=== PATIENT | male | born 1935 | race Caucasian/White ===

== ENCOUNTER 2023-06-17 12:07 | Outpatient (RCR) | payer MEDICARE, BC, SELFPAY ==
[2023-06-17 12:19] LABS: HCT 39.6 % (40.0-50.0); HGB 13.2 g/dL (13.5-17.5); MCH 31.7 pg (27.0-33.0); MCHC 33.3 % (32.0-36.0); MCV 95 fL (80-95); MPV 10.3 fL (8.0-11.0); Platelet Count 104 10^3/uL (130-400); RBC 4.16 10^6/uL (4.36-5.78); RDW 12.2 % (11.8-14.1); RDW-SD 42.8 fL; WBC 4.88 10^3/uL (4.4-10.8)
[2023-06-17] MEDS: Normal Saline Flush 10 ML SYR IVP (12:21)
[2023-06-17] MEDS: Heparin 500 UNITS/5 ML SYRINGE IV (12:21)
[2023-06-17 12:36] LABS: ALT 44 U/L (16-63); AST 15 U/L (15-37); Albumin 3.3 g/dL (3.4-5.0); Alkaline Phosphatase 95 U/L (46-116); Anion Gap 5.7 mmol/L (3-11); BUN 30 mg/dL (7-18); Bilirubin, Total 0.6 mg/dL (0.2-1.0); CO2 28.3 mmol/L (21.0-32.0); CREATININE 1.3 mg/dL (0.70-1.30); Chloride 103 mmol/L (98-107); Estimated GFR 53.17 (mL/min/1.73m2); Glucose 76 mg/dL (74-106); LDH 156 U/L (85-227); Potassium 3.8 mmol/L (3.5-5.1); Sodium 137 mmol/L (136-145); Total Protein 6.7 g/dL (6.4-8.2); Uric Acid 5.1 mg/dL (3.5-7.2)
[2023-06-17 12:44] LABS: Absolute Eosinophil Count 0.24 10^3/uL (0.0-0.7); Absolute Lymphocyte Count 1.42 10^3/uL (1.2-3.4); Absolute Neutrophil Count 2.98 10^3/uL (1.2-6.7); Atypical Lymphocytes % 3; Bands % 4
[2023-06-17 12:45] LABS: Diff Comment Manual Differential; Metamyelocytes % 1; RBC Morphology Normal
== END 2023-06-30 23:59 | disposition home or self-care (01) ==
LOC: INF 12:07
PROVIDERS: Visit Provider Nurse Practitioner Adult Health
DX: C83.38 Diffuse large B-cell lymphoma, lymph nodes of multiple sites (principal); Z45.2 Encounter for adjustment and management of vascular access device
CPT/HCPCS: 36591; 80053; 83615; 84550; 85025

== ENCOUNTER 2023-07-01 04:51 | Outpatient (RCR) | payer MEDICARE, BC, SELFPAY ==
[2023-07-01] MEDS: Normal Saline Flush 10 ML SYR IVP (10:42)
[2023-07-01 10:48] LABS: Abs Immature Grans 0.43 10^3/uL (0.0-0.06); Absolute Eosinophil Count 0.07 10^3/uL (0.0-0.7); Absolute Monocyte Count 1.18 10^3/uL (0.1-0.8); Basophils % 1.1; Eosinophils % 0.6; HCT 43.1 % (40.0-50.0); HGB 14.3 g/dL (13.5-17.5); Immature Grans % 3.5; MCH 31.4 pg (27.0-33.0); MCHC 33.2 % (32.0-36.0); MCV 95 fL (80-95); MPV 8.9 fL (8.0-11.0); Monocytes % 9.7; Neutrophils % 68.1; Platelet Count 293 10^3/uL (130-400); RBC 4.55 10^6/uL (4.36-5.78); RDW 12.5 % (11.8-14.1)
[2023-07-01 10:49] LABS: Absolute Basophil Count 0.13 10^3/uL (0.0-0.2); Absolute Lymphocyte Count 2.07 10^3/uL (1.2-3.4); Absolute Neutrophil Count 8.31 10^3/uL (1.2-6.7)
[2023-07-01 11:05] LABS: ALT 21 U/L (16-63); AST 13 U/L (15-37); Albumin 3.6 g/dL (3.4-5.0); Alkaline Phosphatase 82 U/L (46-116); Anion Gap 8.3 mmol/L (3-11); BUN 23 mg/dL (7-18); Bilirubin, Total 0.3 mg/dL (0.2-1.0); CO2 26.7 mmol/L (21.0-32.0); CREATININE 1.4 mg/dL (0.70-1.30); Calcium 9.4 mg/dL (8.5-10.1); Chloride 104 mmol/L (98-107); Estimated GFR 48.65 (mL/min/1.73m2); Glucose 110 mg/dL (74-106); LDH 148 U/L (85-227); Potassium 4.1 mmol/L (3.5-5.1); Sodium 139 mmol/L (136-145); Total Protein 7.2 g/dL (6.4-8.2); Uric Acid 4.5 mg/dL (3.5-7.2)
== END 2023-07-30 23:59 | disposition home or self-care (01) ==
LOC: INF 04:51
PROVIDERS: Visit Provider Nurse Practitioner Adult Health
DX: C83.38 Diffuse large B-cell lymphoma, lymph nodes of multiple sites (principal); Z45.2 Encounter for adjustment and management of vascular access device
CPT/HCPCS: 36591; 80053; 83615; 84550; 85025